=== PATIENT | female | born 1995 | race Caucasian/White ===

== ENCOUNTER → 2016-11-01 | Outpatient (CLI) | payer BC, OTHER | LOC: HPND 08:35 | PROVIDERS: ATTEND Obstetrics & Gynecology | DX: O43.892 Other placental disorders, second trimester (principal); O99.212 Obesity complicating pregnancy, second trimester; E66.09 Other obesity due to excess calories; Z68.35 Body mass index [BMI] 35.0-35.9, adult | CPT/HCPCS: 76815 ==